=== PATIENT | male | born 1970 | race Caucasian/White ===

== ENCOUNTER 2021-02-03 18:01 | Emergency (ER) | payer BC, SELFPAY ==
[2021-02-03 18:03] VITALS: BP 133/117; PULSE 79; RESP 18; TEMP 36.8; O2SAT 97; BMI 42.3
--- NOTE | 2021-02-03 18:21 | EKG12_ITS ---
Test Reason : CP Blood Pressure : / mmHG Vent. Rate : 077 BPM Atrial Rate : 077 BPM P-R Int : 156 ms QRS Dur : 104 ms QT Int : 372 ms P-R-T Axes : 030 -10 049 degrees QTc Int : 420 ms Normal sinus rhythm Normal ECG Confirmed by MAKSIM TERESA, LOAN ([id number]), staff editor BETHANY BANKS ([id number]) on 02/09/2021 1:08:44 PM Referred By: BB Confirmed By:LOAN SCHAEFFER MD
--- NOTE | 2021-02-03 18:30 | RAD_ITS ---
INDICATION: chest pain EXAMINATION/TECHNIQUE: X-RAY - XR Chest 1 View COMPARISON: None. FINDINGS: The lungs are clear. The cardiomediastinal silhouette is unremarkable. No pleural effusion or pneumothorax. No acute osseous abnormalities. RAD/Chest 1 View (Portable) IMPRESSION: No acute radiographic abnormalities. Electronically Signed: Yoshi Valverde MD at 19:20 EDT Tel , Service support ,
[2021-02-03 18:41] VITALS: O2SAT 93
[2021-02-03 18:41] LABS: Absolute Lymphocyte Count 2.08 X10^3/uL (0.83-4.51); Absolute Neutrophil Count 4.8 X10^3/uL (2.0-7.7); Basophil# 0.05 X10^3/uL; Basophil% 0.6 % (0-1); Eosinophil# 0.13 X10^3/uL; Eosinophils% 1.7 % (0-5); Hematocrit 45.6 % (40-54); Lymphocyte # 2.08 X10^3/ul (0.83-4.51); Lymphocyte % 26.9 % (19-41); Mean Corp Hgb Conc 35.1 g/dL (32-36); Mean Corpuscular Hgb 32.7 pg (27.0-32.0); Mean Corpuscular Volume 93.1 fL (80-94); Mean Platelet Vol. 10.7 fl (6.2-12.0); Monocyte# 0.66 X10^3/uL; Monocyte% 8.5 % (0-10); NRBC Flagged by Analyzer 0 % (0-5); Neutrophil # 4.77 X10^3/uL (2.7-7.7); Neutrophil % 61.9 % (47-70); Platelet Count 197 K/mm3 (150-450); RBC Distribution Width CV 12.2 % (11.6-14.6); RBC Distribution Width SD 42.5 fl (35.1-43.9); White Blood Count 7.7 K/mm3 (4.4-11.0)
[2021-02-03 18:42] LABS: POSITIVE COUNT NO; POSITIVE DIFFERENTIAL NO; POSITIVE MORPHOLOGY NO
[2021-02-03 18:57] LABS: Anion Gap 8 (5-15); BUN 19 mg/dL (7-18); BUN/Creat Ratio 19.2 RATIO (10-20); Calcium,Total 8.8 mg/dL (8.5-10.1); Chloride 106 mmol/L (98-107); Creatinine, Serum 0.99 mg/dL (0.70-1.30); EST Glomerular Filtration Rate 85 mL/min (>60); Est Glom Filt Rate - Afr Amer 103 mL/min (>60); Estimated Creatinine Clearance 96.89 ml/min; Glucose 76 mg/dL (74-106); Potassium 4.2 mmol/L (3.5-5.1); Sodium Level 140 mmol/L (136-145); Troponin-I HS 6.1 pg/mL (3.0-78.5)
--- NOTE | 2021-02-03 19:54 | CT_ITS ---
STUDY: CTA CHEST REASON FOR EXAM: Male, 51 years old. Evaluate for pulmonary embolus. Chest pain. History of hypertension and sleep apnea. RADIATION DOSAGE (If Supplied By Facility): CTDIvol = ( 13.85 ) mGy, DLP = ( 615.84 ) mGycm TECHNIQUE: The examination was performed with the intravenous administration of IV 100mL Isovue-370. Post-processing of the angiographic images was performed, with multiplanar reformation and 3D reconstruction. Individualized dose optimization techniques were used for this CT. COMPARISON: Chest, 02/03/2021. FINDINGS: Normal enhancement of the main pulmonary artery and right and left pulmonary arteries. Normal enhancement of the bilateral peripheral pulmonary arteries. There is no demonstrated pulmonary embolism. Normal thoracic aorta and visualized great vessels. There is no demonstrated aortic dissection. Normal heart and pericardium. Multiple coronary artery calcifications. Normal mediastinum. Normal hilar regions. Normal visualized trachea and bronchi. The lungs are well expanded. There is a 1.2 x 1 x 1 cm soft tissue nodule in the lingula as seen on image 154 series 2. No other mass or infiltrate is seen within the lungs. Normal pleura. Normal chest wall structures. There are degenerative changes of thoracic spine. Fatty infiltration of the liver. Evidence of prior cholecystectomy. CT/CTA Chest W/WO Contrast IMPRESSION: 1. No evidence of pulmonary embolus. 2. No aortic dissection or aneurysm. 3. Nodular density in the lingula. For low-risk or high-risk patients consider a follow-up chest CT at 3 months. If unchanged consider an additional follow-up CT at 18-24 months. Alternatively (or additionally) PET/CT or tissue sampling could be performed. 4. Fatty infiltration of the liver. Electronically Signed: Ryan Carlson DO at 21:11 EDT Tel [phone], Service support ,
--- NOTE | 2021-02-03 20:01 | EDS_ITS ---
HPI History of Present Illness Chief Complaint: Abn Labs Informant: patient Narrative Narrative: Patient is a 51-year-old male who presents to the emergency department for elevated D-dimer test. He had this performed as an outpatient by his PCP. Patient was previously diagnosed with Covid months ago. Over the past couple of months he still have persistent chest tightness. He feels that he consciously has to think to breathe. Denies any significant chest pain. He does still have a minor cough. No fevers or chills. No leg swelling or calf pain. He denies any nausea/vomiting or diarrhea. Patient denies a history of thromboembolism, CAD. No known aggravating or relieving factors. He denies a smoking history. [facility] Medical History (Updated 02/03/21 @ 21:[address] Leodan Virk DO) HTN (hypertension) Sleep apnea Home Medications ascorbic acid (vitamin C) [Vitamin C] 1,000 mg PO DAILY 02/03/21 [History Last Taken Unknown] cholecalciferol (vitamin D3) [Vitamin D3] 125 mcg PO DAILY 02/03/21 [History Last Taken Unknown] lisinopril 10 mg PO QHS 02/03/21 [History Last Taken Unknown] magnesium 200 mg PO DAILY 02/03/21 [History Last Taken Unknown] multivitamin with minerals [Men's One Daily] 1 tab PO DAILY 02/03/21 [History Last Taken Unknown] zinc 50 mg PO DAILY 02/03/21 [History Last Taken Unknown] Allergy/AdvReac Type Severity Reaction Status Date / Time No Known Allergies Allergy Verified 02/03/21 18:02 Surgical History (Updated 02/03/21 @ 18:43 by lAejandra Vale) Hx of cholecystectomy Social History Smoking Status: Never smoker ROS ROS ED Constitutional Constitutional ED: Denies chills or fever(s) Eyes Eyes: Denies change in vision ENT ENT ED: Denies rhinorrhea Cardiovascular Cardiovascular: Denies chest pain or palpitations Respiratory/Chest Respiratory/Chest: Reports cough and dyspnea; Denies sputum Gastrointestinal Gastrointestinal: Denies abdominal pain, diarrhea, nausea or vomiting Genitourinary Genitourinary ED: Denies dysuria, hematuria or urinary frequency Musculoskeletal Musculoskeletal: Denies back pain or neck pain Integumentary Denies rash Neurologic Neurologic: Denies dizziness, headache(s) or weakness EXAM Physical Exam Const Vital Signs: 02/03/21 18:03 02/03/21 18:41 02/03/21 21:43 Temperature 98.2 F Temperature Source Temporal Pulse Rate 79 72 Respiratory Rate 18 18 Respiratory Effort Normal Non-Labored Respiratory Pattern Normal Blood Pressure 133/117 H 136/93 H Blood Pressure Mean 122 Pulse Ox 97 93 94 Oxygen Delivery Method Nasal Cannula Room Air Positive well nourished and well developed General Appearance ED: well developed and NAD HEENT Reports normocephalic and head/scalp atraumatic Eyes PERRL and EOMs intact bilaterally Neck supple Chest Wall inspection of chest normal Resp normal respiratory effort and clear to auscultation bilaterally Auscultation: Negative for rales, rhonchi or wheezes Cardio regular rate, regular rhythm and no murmurs GI normal to inspection, nondistended, normoactive bowel sounds and non-tender Palpation: soft; Negative for guarding or rebound tenderness present Extremity normal to inspection General Extremety ED: Negative for edema or tenderness General Extremity: Negative for edema Neuro oriented x3, CN's II-XII intact bilaterally and no sensory deficits noted Sensorium / Orientation: alert Motor Exam: strength 5/5 throughout Psych mental status grossly normal Skin no rashes or lesions noted MDM MDM MDM Narrative Medical decision making narrative: Patient presents to the ED for CT scan of his chest to evaluate for PE. He had a D-dimer that he states was in the 500 range. On arrival to the ED he is not hypoxic. Not tachycardic. He is in no acute distress. He is a benign physical exam. Basic lab work obtained and he does not have a high troponin. Chest x-ray was performed on arrival per protocol. We will now check a CT scan of the chest. Patient's lab work did not reveal a significant acute abnormality. He is not anemic. Does not have a high white blood cell count. No electrolyte disturbance. Troponin well within normal limits. CT scan of the chest did not reveal any evidence of acute cardiopulmonary abnormality including pulmonary embolism or aortic dissection. He does have a lung nodule which she is already aware of. He has remained stable throughout ED stay. No episodes of hypoxemia. At this time he is stable for discharge. He states that his neck step is to get a stress test from his PCP. I do believe that this is appropriate. If he develops any worsening symptoms he can come back to the emergency department anytime. He understands and is agreeable this plan. All questions were answered. Lab Data Labs: Laboratory Results - last 24 hr 02/03/21 02/03/21 18:30 18:30 WBC 7.7 RBC 4.90 Hgb 16.0 Hct 45.6 MCV 93.1 MCH 32.7 H MCHC 35.1 RDW Std Deviation 42.5 RDW Coeff of Ezequiel 12.2 Plt Count 197 MPV 10.7 Immature Gran % (Auto) 0.400 Neut % (Auto) 61.9 Lymph % (Auto) 26.9 Lawrence % (Auto) 8.5 Eos % (Auto) 1.7 Baso % (Auto) 0.6 Absolute Neuts (auto) 4.8 Absolute Lymphs (auto) 2.08 Nucleated RBC % 0 Sodium 140 Potassium 4.2 Chloride 106 Carbon Dioxide 26.0 Anion Gap 8 BUN 19 H Creatinine 0.99 Estim Creat Clear Calc 96.89 Est GFR (MDRD) Af Amer 103 Est GFR (MDRD) Non-Af 85 BUN/Creatinine Ratio 19.2 Glucose 76 Calcium 8.8 Troponin I High Sens 6.1 Radiography Diagnostic Testing: Radiology Impression Chest X-Ray 02/03/21 18:30 IMPRESSION: No acute radiographic abnormalities. Electronically Signed: Yoshi Valverde MD at 19:20 EDT Tel , Service support , Chest CTA 02/03/21 19:54 IMPRESSION: 1. No evidence of pulmonary embolus. 2. No aortic dissection or aneurysm. 3. Nodular density in the lingula. For low-risk or high-risk patients consider a follow-up chest CT at 3 months. If unchanged consider an additional follow-up CT at 18-24 months. Alternatively (or additionally) PET/CT or tissue sampling could be performed. 4. Fatty infiltration of the liver. Electronically Signed: Ryan Carlson DO at 21:11 EDT Tel [phone], Service support , EKG Initial EKG: Attestation: I personally reviewed and interpreted this EKG as follows: (Rate of 77 beats per minutes normal sinus rhythm. Normal intervals. Normal axis. No significant ST elevations or depressions. No T wave abnormalities.) Discharge Plan Triage Chief Complaint: Abn Labs ED Provider: Leodan Virk Dx/Rx/DC Orders Clinical Impression: Chest tightness Instructions: ED Chest Pain, Noncardiac Prescriptions: No Action lisinopril 10 mg tablet 10 mg PO QHS RF: 0 ascorbic acid (vitamin C) [Vitamin C] 500 mg Tablet 1,000 mg PO DAILY RF: 0 zinc 50 mg Tablet 50 mg PO DAILY RF: 0 multivitamin with minerals [Men's One Daily] Tablet 1 tab PO DAILY RF: 0 magnesium 200 mg Tablet 200 mg PO DAILY RF: 0 cholecalciferol (vitamin D3) [Vitamin D3] 125 mcg (5,000 unit) Tablet 125 mcg PO DAILY RF: 0 Primary Care Provider: Stuart Thakur Referrals: Stuart Thakur MD [Primary Care Provider] - 3-5 Days Disposition Disposition: Home, Self Care Discharge Date/Time: 02/03/21 21:44
[2021-02-03 21:43] VITALS: BP 136/93; PULSE 72; RESP 18; O2SAT 94
== END 2021-02-03 21:44 | disposition home or self-care (01) ==
PROVIDERS: Emergency Provider Emergency Medicine; PCP Family Medicine
DX: R07.89 Other chest pain (principal); K76.0 Fatty (change of) liver, not elsewhere classified; R91.1 Solitary pulmonary nodule; I10 Essential (primary) hypertension; R05 Cough; G47.30 Sleep apnea, unspecified; Z90.49 Acquired absence of other specified parts of digestive tract; Z79.899 Other long term (current) drug therapy; Z86.16 Personal history of COVID-19
CPT/HCPCS: 71045; 71275; 80048; 84484; 85025; 93005; 99284; Q9967

== ENCOUNTER 2024-02-28 17:57 | Emergency (ER) | payer BC, SELFPAY ==
[2024-02-28 17:58] VITALS: BP 132/98; PULSE 90; RESP 16; TEMP 36.9; O2SAT 98
--- NOTE | 2024-02-28 18:09 | CT_ITS ---
INDICATION: Kidney Stone -- Right flank pain radiating anteriorly EXAMINATION: CT Abdomen And Pelvis W/O Contrast Injection TECHNIQUE: Helically acquired images were obtained of the abdomen and pelvis without the use of IV contrast. A radiation dose optimization technique was used for this scan. Oral contrast: None. COMPARISON: None FINDINGS: Evaluation of the solid organs and vascular structures is limited without intravenous contrast. Visualized lung bases: Unremarkable Liver: Diffusely hypodense consistent with fatty liver. Gallbladder: Few small intraluminal stones seen. Spleen: Unremarkable Pancreas: Unremarkable Adrenal Glands: Unremarkable Kidneys: Unremarkable Vasculature: Unremarkable GI Tract: Scattered diverticula throughout the colon without evidence of inflammation. The appendix is normal. Lymphadenopathy: None Peritoneum: No ascites. Bladder: Unremarkable Reproductive organs: Unremarkable Bones/Soft tissues: Mild scattered degenerative changes of the visualized spine. CT/Abdomen/Pelvis without Cont IMPRESSION: No acute abnormalities in the abdomen or pelvis. Specifically, no evidence of hydronephrosis or renal/ureteral stones. Fatty liver. Diverticulosis. Cholelithiasis. Electronically Signed: Yoshi Valverde MD at 19:15 EDT ,
--- NOTE | 2024-02-28 18:10 | EX.ED.DYSGE1 ---
HPI History of Present Illness Chief Complaint: Flank Pain Detail of Chief Complaint: Right flank pain that radiates anteriorly. Informant: patient and spouse/S.O. Onset/Context/Timing Onset: Yesterday Context: Sudden Onset Timing: Continuous and Waxes and wanes Quality: Stabbing piercing intermittent pain Location: Right flank that radiates anteriorly Current Severity: Mild Maximum Severity: Severe Worsened by: Nothing Relieved by: Nothing Associated Symptoms Associated Symptoms: Nausea, frequency, urgency and dark-colored urine Narrative Narrative: Patient is a 54-year-old male. He is on lisinopril for hypertension. He had hypertension for 3 years. Has no known history of renal disease. He has no known history of renal ureterolithiasis. He presents with abrupt onset of right flank pain that radiates anteriorly. He is status post cholecystectomy. He does endorse urinary symptoms that were previously documented. He denies radiation to the scrotum. He has no allergies. He has never had pain like this before. Prior similar symptoms: No Recent Illness/Hospitalization: No PFSH PFSH Medical History HTN (hypertension) Sleep apnea Home Medications ?Medication ?Instructions ?Recorded ?Last Taken ?Type ascorbic acid (vitamin C) 500 mg 1,000 mg PO DAILY 02/03/21 Unknown History tablet (Vitamin C) cholecalciferol (vitamin D3) 125 125 mcg PO DAILY 02/03/21 Unknown History mcg (5,000 unit) tablet (Vitamin D3) lisinopril 10 mg tablet 10 mg PO QHS 02/03/21 Unknown History magnesium 200 mg tablet 200 mg PO DAILY 02/03/21 Unknown History multivitamin with minerals (Men's 1 tab PO DAILY 02/03/21 Unknown History One Daily tablet) zinc 50 mg tablet 50 mg PO DAILY 02/03/21 Unknown History hydrocodone-acetaminophen 5-325mg 1 tab PO Q6H PRN PRN Pain 3 days 02/28/24 Unknown Rx 5mg-325mg #10 TABLETS Allergy/AdvReac Type Severity Reaction Status Date / Time No Known Allergies Allergy Verified 02/28/24 17:58 Surgical History Hx of cholecystectomy Social History (Updated 02/28/24 @ 18:[address] Kevon Sanchez MD) household members: spouse Smoking Status: Never smoker ROS ROS ED Constitutional Constitutional ED: Denies chills, fever(s) or subjective Respiratory/Chest Respiratory/Chest: Denies cough or dyspnea Gastrointestinal Gastrointestinal: Reports abdominal pain and nausea; Denies constipation, diarrhea, melena or vomiting Genitourinary Genitourinary ED: Reports hematuria and urinary frequency; Denies dysuria Musculoskeletal Musculoskeletal: Reports other Details: Right flank pain ; Denies arthralgias, back pain, myalgias or neck pain Integumentary Denies rash Hematologic/Lymphatic Hematologic/Lymphatic: Reports systems reviewed and no addt'l complaints, except as documented EXAM Physical Exam Const Vital Signs: 02/28/24 17:58 02/28/24 19:58 02/28/24 20:19 Temperature 98.4 F 98.1 F Temperature Source Temporal Pulse Rate 90 88 81 Respiratory Rate 16 16 16 Blood Pressure 132/98 H 147/98 H 147/98 H Blood Pressure Mean 109 114 114 Pulse Ox 98 97 97 Oxygen Delivery Method Room Air Room Air Positive well nourished and well developed General Appearance ED: well developed and NAD; Negative for pallor HEENT Reports moist mucous membranes HEENT Narrative: Head is atraumatic normocephalic. Ears normal. Eyes PERRL and EOMs intact bilaterally General Eye ED: Negative for scleral icterus Neck no JVD Chest Wall inspection of chest normal and palpation of chest normal Resp normal respiratory effort and clear to auscultation bilaterally Cardio regular rate, regular rhythm, S1 normal heart sound, S2 normal heart sound and no murmurs GI normal to inspection, nondistended, normoactive bowel sounds, non-tender, non-distended and no masses; Negative for hepatosplenomegaly Palpation: soft Back/Spine no CVA tenderness Thoracic Spine / Upper Back: Negative for thoracic spinal tenderness Lumbar Spine / Lower Back: Negative for lumbar spinal tenderness Extremity normal to inspection Neuro oriented x3 and CN's II-XII intact bilaterally Sensorium / Orientation: alert Psych mental status grossly normal Skin no rashes or lesions noted, no wounds and skin turgor normal General Skin Exam: Negative for jaundice or pallor MDM MDM MDM Narrative Medical decision making narrative: Differential diagnosis would include choledocholithiasis, pyelonephritis, renal calculus, ureteral lithiasis hydronephrosis, hydronephrosis for other causes. Workup included CT of the abdomen pelvis without contrast, UA to assess for blood as well as infection. BMP to assess renal function and CBC to assess white count differential. Patient was medicated with Toradol for his pain and Zofran for his nausea. Lab Data Attestation: I reviewed the patient's lab results. Lab results narrative: CBC is unremarkable. Basic metabolic panel is normal. UA is negative. Labs: Laboratory Results - last 24 hr 02/28/24 18:32 WBC 6.7 RBC 4.86 Hgb 16.1 Hct 45.9 MCV 94.4 H MCH 33.1 H MCHC 35.1 RDW Std Deviation 43.8 RDW Coeff of Ezequiel 12.5 Plt Count 186 MPV 10.6 Immature Gran % (Auto) 0.300 Neut % (Auto) 62.5 Lymph % (Auto) 24.8 Mclennan % (Auto) 9.3 Eos % (Auto) 2.4 Baso % (Auto) 0.7 Absolute Neuts (auto) 4.2 Absolute Lymphs (auto) 1.67 Nucleated RBC % 0 Sodium 137 Potassium 4.4 Chloride 103 Carbon Dioxide 28.0 Anion Gap 6 BUN 14 Creatinine 0.96 Est GFR (MDRD) Af Amer 105 Est GFR (MDRD) Non-Af 87 BUN/Creatinine Ratio 14.6 Glucose 84 Calcium 9.3 Urine Color Yellow Urine Clarity Clear Urine pH 6.0 Ur Specific [place] 1.010 Urine Protein Negative Urine Glucose (UA) Normal Urine Ketones Negative Urine Occult Blood Negative Urine Nitrite Negative Urine Bilirubin Negative Urine Urobilinogen Normal Ur Leukocyte Esterase Negative Urine RBC 0 SEEN Urine WBC 0 SEEN Ur Squamous Epith Cells 0 SEEN Urine Bacteria 0 SEEN Urine Mucus [address] was independent reviewed by me. I see no evidence of hydronephrosis hydroureter. I see no renal or ureteral calculi. Patient status post cholecystectomy. The radiology report was read. Radiology report indicates patient has gallstones. I suspect he is missed reading the surgical clips as gallstones. There is evidence of diverticulosis. That is not the cause of patient's pain. Awaiting callback to confirm that he agrees that what he was interpreted as cholelithiasis is actually surgical clips status postcholecystectomy. Radiography Diagnostic Testing: Clinical Impression(s) from Imaging Studies Abdomen/Pelvis CT 02/28/24 18:09 IMPRESSION: No acute abnormalities in the abdomen or pelvis. Specifically, no evidence of hydronephrosis or renal/ureteral stones. Fatty liver. Diverticulosis. Cholelithiasis. Electronically Signed: Yoshi Valverde MD at 19:15 EDT , ADDENDUM: 02/28/242008 IMPRESSION: undefined CT was reviewed. And will discharge to home. Discharge Plan Triage Chief Complaint: Flank Pain ED Provider: Kevon Sanchez Dx/Rx/DC Orders Clinical Impression: Acute right flank pain, Urgency of micturition Prescriptions: New hydrocodone-acetaminophen 5-325 mg tablet 1 tab PO Q6H PRN PRN (Reason: Pain) 3 Days Qty: 10 0RF No Action lisinopril 10 mg tablet 10 mg PO QHS Patient Comments: TAKE 1 TABLET BY MOUTH ONCE DAILY ascorbic acid (vitamin C) [Vitamin C] 500 mg Tablet 1,000 mg PO DAILY zinc 50 mg Tablet 50 mg PO DAILY multivitamin with minerals [Men's One Daily] Tablet 1 tab PO DAILY magnesium 200 mg Tablet 200 mg PO DAILY cholecalciferol (vitamin D3) [Vitamin D3] 125 mcg (5,000 unit) Tablet 125 mcg PO DAILY Primary Care Provider: Stuart Thakur Referrals: Eron Arriaga MD [Med Staff - Active Staff] - 1 Week if not improving Stuart Thakur MD [Primary Care Provider] - 1-2 Days if not improving Print Language: [place] Disposition Disposition: Home, Self Care
[2024-02-28] MEDS: Ondansetron 4 MG/2 ML Vial IV (18:29)
[2024-02-28] MEDS: 0.9% Normal Saline (1000mL) 1,000 ML 250 ML IV (18:29)
[2024-02-28] MEDS: Ketorolac 15 MG/ML Vial IV (18:30)
[2024-02-28 18:39] LABS: Bacteria 0 SEEN /hpf (None Seen); Mucous, Urine 0 SEEN /hpf (<or=2+); Red Blood Cells-Urine 0 SEEN /hpf (0-5); Squamous Epithelial Cells - UA 0 SEEN /hpf (0-5); White Blood Cells 0 SEEN /hpf (0-5)
[2024-02-28 18:46] LABS: Color, Urine Yellow (Yellow); Glucose, Dipstick Normal (Normal); Ketone-Dipstick Negative (Negative); Leukocyte Esterase-Dipstick Negative /ul (Negative); Nitrite-Dipstick Negative (Negative); Occult Blood-Urine Negative /ul (Negative); Protein-Dipstick Negative (Negative); Urine Bilirubin Dipstick Negative (Negative); Urine Clarity Clear (Clear); Urine Urobilinogen Normal (Normal)
[2024-02-28 18:52] LABS: Absolute Lymphocyte Count 1.67 X10^3/uL (0.83-4.51); Absolute Neutrophil Count 4.2 X10^3/uL (2.0-7.7); Basophil# 0.05 X10^3/uL; Basophil% 0.7 % (0-1); Eosinophil# 0.16 X10^3/uL; Eosinophils% 2.4 % (0-5); Hematocrit 45.9 % (40-54); Hemoglobin 16.1 g/dL (13.0-16.5); Lymphocyte # 1.67 X10^3/ul (0.83-4.51); Lymphocyte % 24.8 % (19-41); Mean Corp Hgb Conc 35.1 g/dL (32-36); Mean Corpuscular Hgb 33.1 pg (27.0-32.0); Mean Corpuscular Volume 94.4 fL (80-94); Mean Platelet Vol. 10.6 fl (6.2-12.0); Monocyte# 0.63 X10^3/uL; Monocyte% 9.3 % (0-10); NRBC Flagged by Analyzer 0 % (0-5); Neutrophil # 4.21 X10^3/uL (2.7-7.7); Neutrophil % 62.5 % (47-70); Platelet Count 186 K/mm3 (150-450); RBC Distribution Width CV 12.5 % (11.6-14.6); RBC Distribution Width SD 43.8 fl (35.1-43.9); Red Blood Count 4.86 M/mm3 (4.6-6.2); White Blood Count 6.7 K/mm3 (4.4-11.0)
[2024-02-28 19:03] LABS: Anion Gap 6 (5-15); BUN 14 mg/dL (7-18); BUN/Creat Ratio 14.6 RATIO (10-20); Calcium,Total 9.3 mg/dL (8.5-10.1); Chloride 103 mmol/L (98-107); Creatinine, Serum 0.96 mg/dL (0.70-1.30); EST Glomerular Filtration Rate 87 mL/min (>60); Est Glom Filt Rate - Afr Amer 105 mL/min (>60); Glucose 84 mg/dL (74-106); Potassium 4.4 mmol/L (3.5-5.1); Sodium Level 137 mmol/L (136-145)
[2024-02-28 19:58] VITALS: BP 147/98; PULSE 88; RESP 16; O2SAT 97
[2024-02-28 20:19] VITALS: BP 147/98; PULSE 81; RESP 16; TEMP 36.7; O2SAT 97
== END 2024-02-28 20:34 | disposition home or self-care (01) ==
PROVIDERS: Emergency Provider Emergency Medicine; PCP Family Medicine; Visit Provider Emergency Medicine
DX: R10.9 Unspecified abdominal pain (principal); I10 Essential (primary) hypertension; R11.0 Nausea; R39.15 Urgency of urination; Z79.899 Other long term (current) drug therapy
CPT/HCPCS: 74176; 80048; 81001; 85025; 99283; J7030; A4216; J2405